=== PATIENT | male | born 1990 | race Caucasian/White ===

== ENCOUNTER 2017-10-13 14:16 | Emergency (ER) | payer SELFPAY ==
[2017-10-13 15:11] LABS: ABSOLUTE EOSINOPHILS # (AUTO) 0.1 10^3/uL (0.0-0.6); ABSOLUTE LYMPHOCYTES (AUTO) 1.5 10^3/uL (0.5-4.7); ABSOLUTE MONOCYTES (AUTO) 0.8 10^3/uL (0.1-1.4); ABSOLUTE NEUT (AUTO) 6.5 10^3/uL (1.7-8.2); BASOPHILS % (AUTO) 0.5 % (0-2); EOSINOPHILS % (AUTO) 1.1 % (0-6); HEMOGLOBIN 14.4 g/dL (13.5-17.0); LYMPHOCYTES % (AUTO) 16.5 % (13-45); MEAN CORPUSCULAR HEMOGLOBIN 32.7 pg (27.0-33.4); MEAN CORPUSCULAR VOLUME 93 fl (80-97); MONOCYTES % (AUTO) 8.7 % (3-13); PLATELET COUNT 230 10^3/uL (150-450); RED BLOOD COUNT 4.39 10^6/uL (4.35-5.55); SEGMENTED NEUTROPHILS % (AUTO) 73.2 % (42-78); TOTAL CELLS COUNTED % (AUTO) 100 %; WHITE BLOOD COUNT 8.9 10^3/uL (4.0-10.5)
--- NOTE | 2017-10-13 15:27 | ER Document Report ---
ED Psych Disorder / Suicide - General Chief Complaint: Psych Problem Stated Complaint: PSYCH EVAL Time Seen by Provider: 10/13/17 15:04 Information source: Patient, Law Enforcement Notes: Chief complaint: Psychosis History of complain:( obtained from----patient) 27 years, male, was IVc by his girlfriend because he was acting strange, seeing colors and figures which are not appropriate. With history of psychosis. And also he banged his head against the window. This was 2 days ago. A complete course history could not be obtained as he is not talking. Onset: As above Duration: 2 days Severity: Severe Quality: Unknown Context: Unknown Exacerbating factor and relieving factors: Unknown REVIEW OF SYSTEMS: CONSTITUTIONAL : Denies fever, chills, or sweats. Denies recent illness. EENT: Denies eye, ear, throat, or mouth pain or symptoms. Denies nasal or sinus congestion or discharge. Denies throat, tongue, or mouth swelling or difficulty swallowing. CARDIOVASCULAR: Denies chest pain. Denies palpitations or racing or irregular heart beat. Denies ankle edema. RESPIRATORY: Denies cough, cold, or chest congestion. Denies shortness of breath, difficulty breathing, or wheezing. GASTROINTESTINAL: Denies distention. Denies nausea, vomiting, or diarrhea. Denies blood in vomitus, stools, or per rectum. Denies black, tarry stools. Denies constipation. GENITOURINARY: Denies difficulty urinating, painful urination, burning, frequency, blood in urine, or discharge. FEMALE GENITOURINARY: Denies vaginal bleeding, heavy or abnormal periods, irregular periods. Denies vaginal discharge or odor. MUSCULOSKELETAL: Denies back or neck pain or stiffness. Denies joint pain or swelling. SKIN: Denies rash, lesions or sores. HEMATOLOGIC : Denies easy bruising or bleeding. LYMPHATIC: Denies swollen, enlarged glands. NEUROLOGICAL: Denies confusion or altered mental status. Denies passing out or loss of consciousness. Denies dizziness or lightheadedness. Denies headache. Denies weakness or paralysis or loss of use of either side. Denies problems with gait or speech. Denies sensory loss, numbness, or tingling. Denies seizures. PSYCHIATRIC: ALL OTHER SYSTEMS REVIEWED AND NEGATIVE. PHYSICAL EXAMINATION: GENERAL: Well-appearing, well-nourished and in no acute distress. HEAD: Atraumatic, normocephalic. EYES: Pupils equal round and reactive to light, extraocular movements intact, conjunctiva are normal. ENT: Nares patent, oropharynx clear without exudates. Moist mucous membranes. NECK: Normal range of motion, supple without lymphadenopathy LUNGS: Breath sounds clear to auscultation bilaterally and equal. No wheezes rales or rhonchi. HEART: Regular rate and rhythm without murmurs ABDOMEN: Soft, nontender, nondistended abdomen. No guarding, no rebound. No masses appreciated. Examination of genitals-deferred Musculoskeletal: Normal range of motion, no pitting or edema. No cyanosis. NEUROLOGICAL: Cranial nerves grossly intact. Normal speech, normal gait. Normal sensory, motor exams PSYCH: Denies any suicidal or homicidal ideation. Denies any hearing voices, denies any visual hallucination. SKIN: Warm, Dry, normal turgor, no rashes or lesions noted. Dictation was performed using [employer] voice recognition software - [facility] Notes: Dictated Past Medical History - General Information source: Patient - Social History Smoking Status: Current Some Day Smoker Cigarette use (# per day): No Chew tobacco use (# tins/day): No Smoking Education Provided: No Frequency of alcohol use: Rare Drug Abuse: None Lives with: Family Family History: Reviewed & Not Pertinent Review of Systems - Review of Systems Notes: Dictated Physical Exam - Vital signs Vitals: Temp Pulse Resp BP Pulse Ox 97.8 F 90 18 132/76 H 99 10/13/17 14:46 10/13/17 14:46 10/13/17 14:46 10/13/17 14:46 10/13/17 14:46 - Notes Notes: Dictated Course - Vital Signs Vital signs: Temp Pulse Resp BP Pulse Ox 98.1 F 83 16 123/76 99 10/14/17 10:39 10/14/17 10:39 10/14/17 10:39 10/14/17 10:39 10/14/17 10:39 - Laboratory Result Diagrams: 10/13/17 14:55 10/13/17 14:55 Laboratory results interpreted by me: 10/13/17 10/13/17 14:55 16:04 Potassium 3.4 L Carbon Dioxide 33 H Glucose 125 H Urine Glucose (UA) 150 H Urine Ketones TRACE H Urine Urobilinogen 4.0 H Salicylates < 1.0 L Acetaminophen < 10 L Discharge - Discharge Clinical Impression: Depression Qualifiers: Depression Type: major depressive disorder Major depression recurrence: recurrent Active/Remission status: currently active Major depression episode severity: moderate Qualified Code(s): F33.1 - Major depressive disorder, recurrent, moderate Suicidal behavior Qualifiers: Attempted self-injury: without attempted self-injury Qualified Code(s): R46.89 - Other symptoms and signs involving appearance and behavior Condition: Stable Disposition: PSYCH HOSP/UNIT
[2017-10-13 15:31] LABS: ALANINE AMINOTRANSFERASE 31 U/L (21-72); ALBUMIN 4.1 g/dL (3.5-5.0); ALKALINE PHOSPHATASE 54 U/L (38-126); ANION GAP 9 (5-19); ASPARTATE AMINO TRANSFERASE 25 U/L (17-59); BILIRUBIN,DIRECT 0.3 mg/dL (0.0-0.4); BILIRUBIN,TOTAL 0.8 mg/dL (0.2-1.3); BLOOD UREA NITROGEN 11 mg/dL (7-20); CALCIUM 9.2 mg/dL (8.4-10.2); CARBON DIOXIDE 33 mmol/L (22-30); CHLORIDE 102 mmol/L (98-107); GLUCOSE 125 mg/dL (75-110); POTASSIUM 3.4 mmol/L (3.6-5.0); SODIUM 143.9 mmol/L (137-145)
[2017-10-13 15:32] LABS: ACETAMINOPHEN < 10 ug/mL (10-30); ALCOHOL < 10 mg/dL (NONE DETECTED); SALICYLATE < 1.0 mg/dL (2.0-20.0)
[2017-10-13 16:25] LABS: APPEARANCE,URINE CLEAR; BILIRUBIN,URINE NEGATIVE (NEGATIVE); GLUCOSE, URINE 150 mg/dL (NEGATIVE); KETONES,URINE TRACE mg/dL (NEGATIVE); LEUKOCYTE ESTERASE,URINE NEGATIVE (NEGATIVE); NITRITE,URINE NEGATIVE (NEGATIVE); PROTEIN,URINE NEGATIVE (NEGATIVE); URINE SPECIFIC GRAVITY 1.028
[2017-10-13 16:26] LABS: COLOR,URINE YELLOW
[2017-10-13 16:44] LABS: URINE BARBITURATES SCREEN NEGATIVE; URINE BENZODIAZEPINES SCREEN NEGATIVE; URINE COCAINE SCREEN NEGATIVE; URINE MARIJUANA (THC) SCREEN UNCONFIRMED POSITIVE; URINE METHADONE SCREEN NEGATIVE; URINE PHENCYCLIDINE SCREEN NEGATIVE
[2017-10-13] MEDS ORDERED: BENZTROPINE MESYLATE 1 MG TABLET PO ONE (16:55)
[2017-10-13] MEDS ORDERED: HALOPERIDOL 5 MG TABLET PO SCH (17:00)
--- NOTE | 2017-10-13 17:25 | PSYCHOLOGICAL NOTE ---
Psych Note - Psych Note Psych Note: Reason for Consult:Psychosis 27 years, male, was IVc by his girlfriend because he was acting strange, seeing colors and figures which are not appropriate. With history of psychosis. And also he banged his head against the window. This was 2 days ago. A complete course history could not be obtained as he is not talking. Clinician spoke with patient. I identified that he is currently in the hospital ; "I know I can't be in prison...I don't see any handcuffs anywhere." He disclosed that he knows he came for an evaluation but states he doesn't know why. Clinician notes patient presents organized and linear however upon exiting the room patient began speaking to himself and mumbling. [facility] staff notified clinician to report the patient appears to be speaking in multiple languages possibly Montserratian and British and is verbalizing a lot of colors and numbers. Behavioral health team contacted patient's fiancee This law writer spoke with patients Chidi Page, who reports the patients behaviors have been escalating over the past few months. The patient will not speak for a few days, then will do things like wake her up at 5am telling her that he was scared and that she is a liar. Kaylee states she woke up in the middle of the night to the patient drawing odd pictures and words on the back of their bedroom door, with GOD circled. Per Kaylee he has been taking things out of the trash stating he "had to make pictures with it, just give me 30 seconds and everything in life will make since". Per Kaylee on friday10/12/17 the patient put his arms around her, would not let her go and just kept repeating things like, "i love you, but im not in love with you, you have to make me fall in love with you over and over and over and over" and "you don't have to be scared of me, but you have to be scared of me" as if he is referring to an alternate personality of his. At this point Kaylee's roommate called law enforcement. Per Kaylee the patient could not understand what was going on, and resisted going with the officer so they arrested him for resisting arrest. Friday he was released under the circumstances he gets a psych evaluation. Kaylee reports the patient will have a blank stare as if "the lights are on but no one is there". Medication recommendations per [facility]'s contracted psychiatrist Dr. Josh KEARNEY are as follows 1. Haldol 5mg twice daily 2. Cogentin 1 mg daily 298.9 (F29) unspecified schizophrenia spectrum and other psychotic disorder Impression\\plan: Patient is recommended to continue under IVC. Patient is presenting possibly manic. Patient is observed nonstop talking with random words in Montserratian and possibly British. Patient appears to be very fixated on numbers and colors. We will patient is able to briefly communicate with clinician patient's ability to contact continue on track deteriorates quickly. Medication recommendations have been provided. Dr. Johnson was consulted and the care and management this patient; attending physician is agreement with recommendations and disposition.
[2017-10-13] MEDS: HALOPERIDOL 5 MG TABLET PO SCH (18:15)
--- NOTE | 2017-10-13 20:24 | EKG REPORT ---
SEVERITY:- BORDERLINE ECG - SINUS RHYTHM BORDERLINE T ABNORMALITIES, ANT-LAT LEADS BORDERLINE PROLONGED QT INTERVAL : Confirmed by: Lilly Howell MD 13-Oct-2017 20:22:31
[2017-10-14] MEDS: HALOPERIDOL 5 MG TABLET PO SCH (09:29)
--- NOTE | 2017-10-14 09:54 | ER Document Report ---
Doctor's Note Notes: 10/14/17 09:54 Pt reports that he is feeling well today but denies feeling different today than other days. When asked if he knew why he was here today, he states " because people want me to quit thinking about things the way I think about things". He states that in the past he has been told by people that they think he may have schizophrenia. He reports that he has always thought about things in terms of colors and never noticed a change later in life in the way he thought. He denies any known plan for medical treatment. I informed the patient that he is acting different today and is with significant improvement after treatment as compared to yesterday. Informed patient that he will not be able to be discharged home today but may be able to be discharged home tomorrow if the treatment continues to show this improvement. Pt reports that he smokes 1 pack of cigarettes per day, will give a Nicotine patch. PHYSICAL EXAM GENERAL: Alert. No acute distress. LUNGS: Clear to auscultation bilaterally, no wheezes, rales, or rhonchi. No respiratory distress. HEART: Regular rate and rhythm. No murmurs, gallops, or rubs. ABDOMEN: Soft, non-tender. Non-distended. Bowel sounds present in all 4 quadrants. No guarding, rebound, or rigidity. EXTREMITIES: Moves all 4 extremities spontaneously. NEUROLOGICAL: Alert and oriented x3. Normal speech. PSYCH: Initially cooperative while he explained his history but became paranoid after some explanation. Pt also became angry and tearful when informed that he will not be discharged today. SKIN: Warm, dry. (ANGIE MORENO) 10/14/17 19:58 Patient has been accepted for transfer to inpatient psychiatric facility. Patient was quite angry about this, threatened to punch the nurse, treated with Ativan prior to transfer by [facility]'s department. (ECHO SALGADO) Scribe Documentation - Scribe Written by Gema:: Gema López 10/14/17 1142 acting as scribe for :: Mylene
[2017-10-14 10:41] VITALS: BP 123/76
--- NOTE | 2017-10-14 11:07 | PSYCHOLOGICAL NOTE ---
Psych Note - Psych Note Psych Note: Reason for Consult:Psychosis 27 years, male, was IVc by his girlfriend because he was acting strange, seeing colors and figures which are not appropriate. With history of psychosis. And also he banged his head against the window. This was 2 days ago. A complete course history could not be obtained as he is not talking. Clincian conducted check in with patient patient disclosed that he feels "ok" and identifies feeling "a little different from yesterday." He is unable to communicate why he feels different. Clinician notes patient became slightly upset after hanging up with a phone call to his fiance. Appears the patient is upset because she will not or can not come visit him. Patient is easily redirected. Medication recommendations per [facility]'s contracted psychiatrist Dr. Josh KEARNEY are as follows 1. Haldol 5mg twice daily 2. Cogentin 1 mg daily 298.9 (F29) unspecified schizophrenia spectrum and other psychotic disorder Impression\\plan: Patient is recommended to continue under IVC. Patient is observed nonstop talking with random words in Setswana and possibly Indonesian. Patient appears to be very fixated on numbers and colors. We will patient is able to briefly communicate with clinician patient's ability to contact continue on track deteriorates quickly. Medication recommendations have been provided. Patient was accepted to [facility]; transportation will occur today. Dr. Johnson was consulted and the care and management this patient; attending physician is agreement with recommendations and disposition.
[2017-10-14] MEDS ORDERED: LORAZEPAM INJ 2 MG/1 ML VIAL IM ONE (12:25)
== END 2017-10-14 12:22 ==
LOC: ER 14:16
DX: F33.1 Major depressive disorder, recurrent, moderate (principal); R46.89 Other symptoms and signs involving appearance and behavior; F29 Unspecified psychosis not due to a substance or known physiological condition; F17.210 Nicotine dependence, cigarettes, uncomplicated
CPT/HCPCS: 93005; 99285; 96372; 36415; 80307 ×4; 85025; 80053; 81001; 93010; J2060